=== PATIENT | male | born 1970 | race American Indian/Alaskan Native ===

== ENCOUNTER 2021-07-24 02:43 | Emergency (ER) | payer OTHER ==
[2021-07-24] MEDS ORDERED: IPRATROPIUM/ALBUTEROL SULFATE 3 ML AMPUL.NEB IH ONE (03:01)
--- NOTE | 2021-07-24 03:07 | Emergency Department Report ---
ED Shortness of Breath HPI - General Stated Complaint: SHORNTESS OR BREATH Time Seen by Provider: 07/24/21 03:01 - History of Present Illness Initial Comments: Patient presents with a 2 to 3-day history of shortness of breath. He has had a slight cough which has been nonproductive. There have been no fevers or chills. He has no vomiting or diarrhea. There is no history of recent travel or trauma. He has had no sick contacts. He does state that the shortness of breath seems to be worse with exertion. Last night and tonight, he had difficulty sleeping. He does not have PND. He has no pain or swelling in the legs. Is never had symptoms like this before. Has no underlying lung history. There is no family history of lung trouble. He has had no recent travel or trauma. - Related Data Previous Rx's Medication Instructions Recorded Last Taken Type Albuterol Sulfate [Proair 2 puff IH 4XD #1 aer.pow.ba 07/24/21 Unknown Rx Respiclick] predniSONE [Deltasone] 50 mg PO QDAY #5 tab 07/24/21 Unknown Rx Allergies Allergy/AdvReac Type Severity Reaction Status Date / Time No Known Allergies Allergy Verified 07/24/21 03:13 ED Review of Systems ROS: Stated complaint: SHORNTESS OR BREATH Other details as noted in HPI Comment: All other systems reviewed and negative Constitutional: denies: fever Eyes: denies: vision change ENT: denies: throat pain Respiratory: see HPI Cardiovascular: denies: chest pain Endocrine: denies: unexplained weight loss Gastrointestinal: denies: abdominal pain Genitourinary: denies: dysuria Musculoskeletal: denies: back pain Skin: denies: rash Neurological: denies: headache Hematological/Lymphatic: denies: easy bruising ED Past Medical Hx - Past Medical History Previous Medical History?: No - Family History Family history: no significant - Social History Smoking Status: Never Smoker - Medications Home Medications: Home Medications Medication Instructions Recorded Confirmed Last Taken Type Albuterol Sulfate [Proair 2 puff IH 4XD #1 aer.pow.ba 07/24/21 Unknown Rx Respiclick] predniSONE [Deltasone] 50 mg PO QDAY #5 tab 07/24/21 Unknown Rx ED Physical Exam - General Limitations: No Limitations, Other (Pulse ox noted and normal after) General appearance: alert, in distress (Mild) - Head Head exam: Present: atraumatic, normocephalic, normal inspection - Eye Eye exam: Present: normal appearance, EOMI. Absent: scleral icterus - ENT ENT exam: Present: normal exam, mucous membranes moist - Neck Neck exam: Present: normal inspection. Absent: meningismus - Respiratory Respiratory exam: Present: respiratory distress (Mild), wheezes (Bilateral) - Cardiovascular Cardiovascular Exam: Present: regular rate, normal rhythm - GI/Abdominal GI/Abdominal exam: Present: soft. Absent: tenderness - Extremities Exam Extremities exam: Present: normal capillary refill. Absent: calf tenderness - Back Exam Back exam: Absent: CVA tenderness (R), CVA tenderness (L) - Neurological Exam Neurological exam: Present: alert, oriented X3, normal gait. Absent: motor sensory deficit - Psychiatric Psychiatric exam: Present: normal affect, normal mood - Skin Skin exam: Present: warm, dry ED Course Vital Signs 07/24/21 07/24/21 03:06 03:28 Temperature 97.5 F L Pulse Rate 99 H Pulse Rate [ 97 H Anterior Bilateral Throughout] Respiratory 18 Rate Respiratory 16 Rate [Anterior Bilateral Throughout] Blood Pressure 171/84 O2 Sat by Pulse 93 Oximetry - Reevaluation(s) Reevaluation #1: 07/24/21 03:05 Chest x-ray and DuoNeb were ordered. Old records noted Reevaluation #2: 07/24/21 04:37 X-ray was noted and the patient was discharged ED Medical Decision Making - Radiology Data Radiology results: report reviewed - Medical Decision Making Patient presents with cough and trouble breathing. He was wheezing. He did respond to bronchodilators. There is no radiographic evidence of pneumonia or congestive heart failure. He certainly does not have symptoms that would suggest CHF. He does not have chest pain that would suggest ACS or STEMI. There is no heart failure. There is no pneumonia. He does not have a collapsed lung. He was treated symptomatically and referred for outpatient evaluation. There is no travel or immobility. He has no leg pain. I do not believe this represents pulmonary embolism. Critical Care Time: No Critical care attestation.: If time is entered above; I have spent that time in minutes in the direct care of this critically ill patient, excluding procedure time. ED Disposition Clinical Impression: Wheezing, Viral URI Disposition: HOME / SELF CARE / HOMELESS Is pt being admited?: No Condition: Stable Instructions: Shortness of Breath, Adult, [id number], Upper Respiratory Infection, Adult, [id number], How to Use a Dry Powder Inhaler, [id number] Additional Instructions: Drink plenty water. Use the inhaler. Return for problems. Follow-up with your regular doctor. If you do not have a regular doctor, follow-up with the referral physician. Return if you develop any new symptoms, worsening trouble breathing, or problems. Prescriptions: predniSONE [Deltasone] 50 mg PO QDAY #5 tab Albuterol Sulfate [Proair Respiclick] 2 puff IH 4XD #1 aer.pow.ba Referrals: PRIMARY CAREMD [Referring] - 3-5 Days DYLAN MARCUS MD [Staff Physician] - 3-5 Days
--- NOTE | 2021-07-24 04:09 | XRay Report ---
CHEST 2 VIEWS INDICATION / CLINICAL INFORMATION: cough, new onset wheezing. COMPARISON: None available. FINDINGS: SUPPORT DEVICES: None. HEART / MEDIASTINUM: No significant abnormality. LUNGS / PLEURA: No significant pulmonary or pleural abnormality. No pneumothorax. ADDITIONAL FINDINGS: No significant additional findings. IMPRESSION: 1. No acute findings. Signer Name: Alissa Mclaughlin MD Signed: 07/24/2021 3:56 AM Workstation Name: [id number]
[2021-07-24 05:32] VITALS: BP 133/78
== END 2021-07-24 05:05 | disposition home or self-care (01) ==
LOC: ED 02:43
DX: J06.9 Acute upper respiratory infection, unspecified (principal); R06.2 Wheezing
CPT/HCPCS: 71046; 94640; 94644; 99283

== ENCOUNTER 2021-08-25 12:03 | Outpatient (CLI) | payer OTHER ==
[2021-08-25 13:00] LABS: ABG Base Excess 1.9 mmol/L (-2.0-3.0); ABG HCO3 26.8 mmol/L (20.0-26.0); ABG Methemoglobin 0.5 % (0.0-1.5); ABG Oxygen Saturation 96.9 % (95.0-99.0); ABG PCO2 42.8 mm Hg; ABG PH 7.414 pH Units (7.350-7.450); ABG PO2 84.1 mm Hg (80.0-90.0)
[2021-08-25 13:12] LABS: Hematocrit 45.7 % (35.5-45.6); Hemoglobin 14.6 gm/dl (11.8-15.2); Mean Corpuscular HGB Conc 32 % (32-34); Mean Corpuscular Volume 87 fl (84-94); Platelet Count 156 K/mm3 (140-440); Red Blood Count 5.25 M/mm3 (3.65-5.03); Red Cell Distribution Width 13.5 % (13.2-15.2)
[2021-08-25 13:28] LABS: Alanine Aminotransferase 16 units/L (7-56); Albumin 4.3 g/dL (3.9-5); BUN/Creatinine Ratio 11; Blood Urea Nitrogen 10 mg/dL (9-20); Calcium 9.1 mg/dL (8.4-10.2); Chol/HDL Ratio 1.62 %; HDL Cholesterol 102 mg/dL (40-59); Hemolysis Index 8; LDL Cholesterol,Direct 55 mg/dL (50-130)
--- NOTE | 2021-08-25 13:50 | XRay Report ---
CHEST 2 VIEWS INDICATION / CLINICAL INFORMATION: CHRONIC COUGH. COMPARISON: July 24, 2021 FINDINGS: SUPPORT DEVICES: None. HEART / MEDIASTINUM: No significant abnormality. LUNGS / PLEURA: No significant pulmonary or pleural abnormality. No pneumothorax. ADDITIONAL FINDINGS: No significant additional findings. IMPRESSION: 1. No acute findings. Signer Name: Jose Duggan MD Signed: 08/25/2021 1:46 PM Workstation Name: [id number]
== END 2021-08-25 12:04 | disposition home or self-care (01) ==
LOC: XRAY 12:03
PROVIDERS: ATTEND Internal Medicine
DX: R05.3 Chronic cough (principal); R06.00 Dyspnea, unspecified; R05.9 Cough, unspecified
CPT/HCPCS: 36415; 71046; 80053; 80061; 82785; 82803; 84436; 84443; 85027

== ENCOUNTER 2021-11-08 21:04 | Emergency (ER) | payer OTHER ==
[2021-11-08 21:10] VITALS: BP 145/82
[2021-11-08] MEDS ORDERED: LIDOCAINE (1%) 10 MG/1 ML VIAL 20 ML MDV INFILTRATI ONE (21:16)
[2021-11-08] MEDS ORDERED: TETANUS,DIPH,PERTUSS(ACELL) VACCINE 0.5 ML SYRINGE IM ONE (21:31)
--- NOTE | 2021-11-08 21:50 | Emergency Department Report ---
- General Chief Complaint: Wound/Laceration Stated Complaint: LEFT LEG LACERATION Time Seen by Provider: 11/08/21 21:16 Source: patient, EMS Mode of arrival: Stretcher Limitations: No Limitations - History of Present Illness Initial Comments: LEFT LEG LACERATION TO THE WEST ABOUT 4 cm LONG.metal object got through his left lower leg while working on his car , uptodate with tetanus -: Sudden, hour(s) Extremity Location: Left: Lower Leg Patient Tetanus UTD: Yes Context: accidental Associated Symptoms: pain - Related Data Previous Rx's Medication Instructions Recorded Last Taken Type Albuterol Sulfate [Proair 2 puff IH 4XD #1 aer.pow.ba 07/24/21 Unknown Rx Respiclick] predniSONE [Deltasone] 50 mg PO QDAY #5 tab 07/24/21 Unknown Rx Allergies Allergy/AdvReac Type Severity Reaction Status Date / Time No Known Allergies Allergy Verified 07/24/21 03:13 ED Review of Systems ROS: Stated complaint: LEFT LEG LACERATION Other details as noted in HPI Constitutional: denies: chills, fever Eyes: denies: eye pain, eye discharge, vision change ENT: denies: ear pain, throat pain Respiratory: denies: cough, shortness of breath, wheezing Cardiovascular: denies: chest pain, palpitations Endocrine: no symptoms reported Gastrointestinal: denies: abdominal pain, nausea, diarrhea Genitourinary: denies: urgency, dysuria Musculoskeletal: denies: back pain, joint swelling, arthralgia Skin: denies: rash, lesions Neurological: denies: headache, weakness, paresthesias Psychiatric: denies: anxiety, depression Hematological/Lymphatic: denies: easy bleeding, easy bruising ED Past Medical Hx - Past Medical History Previous Medical History?: No - Surgical History Past Surgical History?: No - Social History Smoking Status: Never Smoker - Medications Home Medications: Home Medications Medication Instructions Recorded Confirmed Last Taken Type Albuterol Sulfate [Proair 2 puff IH 4XD #1 aer.pow.ba 07/24/21 Unknown Rx Respiclick] predniSONE [Deltasone] 50 mg PO QDAY #5 tab 07/24/21 Unknown Rx ED Physical Exam - General Limitations: No Limitations General appearance: alert, in no apparent distress - Head Head exam: Present: atraumatic, normocephalic - Eye Eye exam: Present: normal appearance - ENT ENT exam: Present: mucous membranes moist - Neck Neck exam: Present: normal inspection - Respiratory Respiratory exam: Present: normal lung sounds bilaterally. Absent: respiratory distress - Cardiovascular Cardiovascular Exam: Present: regular rate, normal rhythm. Absent: systolic murmur, diastolic murmur, rubs, gallop - GI/Abdominal GI/Abdominal exam: Present: soft, normal bowel sounds - Rectal Rectal exam: Present: deferred - Extremities Exam Extremities exam: Present: normal inspection - Expanded Lower Extremity Exam Left Lower Leg exam: Present: laceration - Back Exam Back exam: Present: normal inspection - Neurological Exam Neurological exam: Present: alert, oriented X3 - Psychiatric Psychiatric exam: Present: normal affect, normal mood - Skin Skin exam: Present: warm, dry, intact, normal color. Absent: rash ED Course Vital Signs 11/08/21 21:09 Temperature 98.6 F Pulse Rate 90 Respiratory 18 Rate Blood Pressure 145/82 [Right] O2 Sat by Pulse 99 Oximetry - Laceration /Wound Repair Left Lower Leg Wound Location: lower extremity Wound Length (cm): 4 Wound's Depth, Shape: superficial Wound Explored: no foreign body removed Betadine Prep?: Yes Anesthesia: 1% Lidocaine Volume Anesthetic (ccs): 5 Wound Debrided: minimal Wound Repaired With: sutures Suture Size/Type: 3:0 Number of Sutures: 4 Layer Closure?: No Deep Layer Suture Size/Type: 3:0 Sterile Dressing Applied?: Yes Critical care attestation.: If time is entered above; I have spent that time in minutes in the direct care of this critically ill patient, excluding procedure time. ED Disposition Clinical Impression: Laceration of left lower leg Disposition: 01 HOME / SELF CARE / HOMELESS Is pt being admited?: No Does the pt Need Aspirin: No Condition: Stable Instructions: Laceration Care, Adult, Sutures, [place], or Adhesive Wound Closure, [id number]
--- NOTE | 2021-11-08 21:54 | XRay Report ---
LEFT TIBIA-FIBULA 2 VIEW(S) INDICATION / CLINICAL INFORMATION: lac COMPARISON: None available. FINDINGS: BONES / JOINT(S): No acute displaced fracture or subluxation. SOFT TISSUES: Soft tissue gas at the mid leg compatible with laceration. No radiopaque foreign body ADDITIONAL FINDINGS: None. Signer Name: Brian Dee MD Signed: 11/08/2021 9:49 PM Workstation Name: [id number]
[2021-11-08] MEDS ORDERED: TETANUS,DIPHTHERIA TOXOID ADULT 0.5 ML INJ IM ONE (22:16)
== END 2021-11-08 22:29 | disposition home or self-care (01) ==
LOC: ED 21:04
DX: S81.812A Laceration without foreign body, left lower leg, initial encounter (principal); W22.8XXA Striking against or struck by other objects, initial encounter; Y93.89 Activity, other specified; Y92.89 Other specified places as the place of occurrence of the external cause; Y99.8 Other external cause status
CPT/HCPCS: 12002; 73590; 90714; 90715; 99283; J3490

== ENCOUNTER 2021-11-09 13:35 | Emergency (ER) | payer OTHER ==
[2021-11-09] MEDS ORDERED: TETANUS,DIPH,PERTUSS(ACELL) VACCINE 0.5 ML SYRINGE IM ONE (14:21)
--- NOTE | 2021-11-09 14:21 | Emergency Department Report ---
ED Recheck HPI - General Stated Complaint: TETANUS SHOT Time Seen by Provider: 11/09/21 14:20 Source: patient Mode of arrival: Ambulatory Limitations: No Limitations - History of Present Illness Initial Comments: Here for lac repair earlier today. Went home and was incorrect on when last tdap was- here for tdap MD Complaint: other - Related Data Previous Rx's Medication Instructions Recorded Last Taken Type Albuterol Sulfate [Proair 2 puff IH 4XD #1 aer.pow.ba 07/24/21 Unknown Rx Respiclick] predniSONE [Deltasone] 50 mg PO QDAY #5 tab 07/24/21 Unknown Rx Ibuprofen [Motrin] 800 mg PO Q8HR PRN #14 tablet 11/08/21 Unknown Rx Allergies Allergy/AdvReac Type Severity Reaction Status Date / Time No Known Allergies Allergy Verified 07/24/21 03:13 ED Review of Systems ROS: Stated complaint: TETANUS SHOT Other details as noted in HPI Comment: All other systems reviewed and negative ED Past Medical Hx - Surgical History Past Surgical History?: No - Family History Family history: no significant - Social History Smoking Status: Never Smoker - Medications Home Medications: Home Medications Medication Instructions Recorded Confirmed Last Taken Type Albuterol Sulfate [Proair 2 puff IH 4XD #1 aer.pow.ba 07/24/21 Unknown Rx Respiclick] predniSONE [Deltasone] 50 mg PO QDAY #5 tab 07/24/21 Unknown Rx Ibuprofen [Motrin] 800 mg PO Q8HR PRN #14 tablet 11/08/21 Unknown Rx ED Physical Exam - General General appearance: alert, in no apparent distress - Head Head exam: Present: atraumatic, normocephalic - Eye Eye exam: Present: normal appearance - ENT ENT exam: Present: mucous membranes moist - Neck Neck exam: Present: normal inspection - Respiratory Respiratory exam: Present: normal lung sounds bilaterally. Absent: respiratory distress - Cardiovascular Cardiovascular Exam: Present: regular rate, normal rhythm. Absent: systolic murmur, diastolic murmur, rubs, gallop - GI/Abdominal GI/Abdominal exam: Present: soft, normal bowel sounds - Rectal Rectal exam: Present: deferred - Extremities Exam Extremities exam: Present: normal inspection - Back Exam Back exam: Present: normal inspection - Neurological Exam Neurological exam: Present: alert, oriented X3 - Psychiatric Psychiatric exam: Present: normal affect, normal mood - Skin Skin exam: Present: warm, dry, intact, normal color. Absent: rash ED Recheck MDM - Core Measures Measure Exclusions: not indicated - Medical Decision Making tdap given Critical care attestation.: If time is entered above; I have spent that time in minutes in the direct care of this critically ill patient, excluding procedure time. ED Disposition Clinical Impression: Laceration of left lower leg Disposition: HOME / SELF CARE / HOMELESS Is pt being admited?: No Does the pt Need Aspirin: No Condition: Stable Instructions: Laceration Care, Adult Additional Instructions: follow up as previously instructed Referrals: ELDON RUBIO MD [Staff Physician] - 3-5 Days Time of Disposition: 14:21
[2021-11-09 14:25] VITALS: BP 129/73
== END 2021-11-09 14:52 | disposition home or self-care (01) ==
LOC: ED 13:35
DX: S81.812A Laceration without foreign body, left lower leg, initial encounter (principal); X58.XXXA Exposure to other specified factors, initial encounter; Y93.89 Activity, other specified; Y92.89 Other specified places as the place of occurrence of the external cause; Y99.8 Other external cause status
CPT/HCPCS: 90471; 90715; 99282